=== PATIENT | male | born 1980 | race Caucasian/White ===

== ENCOUNTER 2017-10-04 12:34 | Emergency (ER) | payer OTHER ==
[2017-10-04 12:40] VITALS: RESP 20; TEMP 97.8
[2017-10-04] MEDS ORDERED: TDAP VACCINE 0.5 ML SUS IM ONE ×2 (13:05→13:13)
[2017-10-04] MEDS ORDERED: BACITRACIN 500 U/GM OIN TOP ONE ×2 (13:07→13:13)
[2017-10-04 13:43] VITALS: BP 107/66; PULSE 64; O2SAT 98
== END 2017-10-04 13:39 | disposition home or self-care (01) | DRG 563 ==
LOC: ED 12:34
DX: S63.501A Unspecified sprain of right wrist, initial encounter (principal); W20.8XXA Other cause of strike by thrown, projected or falling object, initial encounter; S50.811A Abrasion of right forearm, initial encounter; S50.11XA Contusion of right forearm, initial encounter
CPT/HCPCS: 73110; 90471; 90715; 99283; A9270-GY